=== PATIENT | female | born 1975 | race Caucasian/White ===

== ENCOUNTER 2017-09-14 20:34 | Emergency (ER) | payer OTHER ==
[2017-09-14 21:02] VITALS: BP 139/81; PULSE 78; RESP 18; TEMP 98.5
--- NOTE | 2017-09-14 21:33 | ED ---
Upper Extremity HPI - General Chief Complaint: Extremity Injury, Upper Stated Complaint: left hand pain Time Seen by Provider: 09/14/17 21:11 Source: patient Mode of arrival: ambulatory Limitations: no limitations - History of Present Illness Initial Comments: 42-year-old female complains of left wrist pain for 2 days. Patient states she was playing with some kids when one of them was a little rougher due to autism and felt it extend back. Patient states she is concerned because she had a fracture, weeks ago was placed in a cast. Patient having pain across her entire wrist unable to supinate and pronate. She denies any numbness or tingling. Patient having pain with [id number] range of motion. Patient is right-hand dominant. No pain in the forearm or elbow on that side. - Related Data Previous Rx's Medication Instructions Recorded Acetaminophen with Codeine 1 each PO Q4H PRN #20 tab 09/14/17 [Tylenol w/codeine #3] Allergies Allergy/AdvReac Type Severity Reaction Status Date / Time TAPE AdvReac WRIPPED Uncoded 09/14/17 21:02 SKIN OFF Review of Systems ROS Statement: Those systems with pertinent positive or pertinent negative responses have been documented in the HPI. ROS Other: All systems not noted in ROS Statement are negative. Musculoskeletal: Reports: other (left wrist pain) Neurological: Reports: weakness, numbness Past Medical History Additional Past Medical History / Comment(s): DDD, nerve damage History of Any Multi-Drug Resistant Organisms: None Reported Past Surgical History: Section Additional Past Surgical History / Comment(s): bilateral mastectomy Past Psychological History: Anxiety, Depression Smoking Status: Current every day smoker Past Alcohol Use History: Occasional Past Drug Use History: Marijuana General Exam Limitations: no limitations General appearance: alert, in no apparent distress Left Shoulder Exam: Present: normal inspection, full ROM. Absent: tenderness, swelling Upper Arm exam: Present: normal inspection, full ROM. Absent: tenderness, swelling Elbow exam: Present: normal inspection, full ROM. Absent: tenderness, swelling Forearm Wrist exam: Present: normal inspection, tenderness (left dorsal wrist) Hand Wrist exam: Present: tenderness (Dorsal wrist). Absent: full ROM (Unable to pronate or supinate decreased lateral range of motion.), swelling, ecchymosis Neuro motor exam: Present: wrist extension intact, thumb opposition intact Neurosensory exam: Present: 2-point discrimination Vascular: Present: normal capillary refill Course Vital Signs 09/14/17 21:00 Temperature 98.5 F Pulse Rate 78 Respiratory 18 Rate Blood Pressure 139/81 O2 Sat by Pulse 98 Oximetry Medical Decision Making - Medical Decision Making Reviewed x-ray positive fracture , ulnar fracture radial aspect intra- articular. Patient aware OCL applied by and clyde RN. Good neurovascular intact patient closely follow up with orthopedic in 2 days. Disposition Clinical Impression: Fracture of wrist Disposition: HOME SELF-CARE Condition: Good Instructions: Wrist Injury (ED), Wrist Fracture in Adults (ED) Prescriptions: Acetaminophen with Codeine [Tylenol w/codeine #3] 1 each PO Q4H PRN #20 tab PRN Reason: Pain Referrals: None,Stated [Primary Care Provider] - 1-2 days Renata Roland, PAC [PHYSICIAN LOADING UNIT TOOL SETTER] - 1-2 days Time of Disposition: 22:02
--- NOTE | 2017-09-14 21:51 | XR ---
EXAMINATION TYPE: XR wrist complete LT DATE OF EXAM: 09/14/2017 COMPARISON: NONE available at this location HISTORY: Pain, history of fracture TECHNIQUE: 4 view left wrist FINDINGS: Appears to be nonunion of a radial fracture with intra-articular extension. Cortical margin s are somewhat smooth. Additional fractures are not identified. IMPRESSION: 1. Delayed union of a ulnar aspect radial fracture with intra-articular extension.
[2017-09-14] MEDS ORDERED: KETOROLAC 60 MG/2 ML VIAL IM STA (21:58)
== END 2017-09-14 22:36 | disposition home or self-care (01) ==
LOC: EC 20:34
DX: S52.92XA Unspecified fracture of left forearm, initial encounter for closed fracture (principal); F17.200 Nicotine dependence, unspecified, uncomplicated; Z91.048 Other nonmedicinal substance allergy status; Y93.89 Activity, other specified
CPT/HCPCS: 99283 ×2; 29125 ×2; 96372 ×2; 73110; J1885

== ENCOUNTER 2018-12-12 15:29 | Emergency (ER) | payer OTHER ==
[2018-12-12 15:42] VITALS: RESP 18
[2018-12-12] MEDS ORDERED: SODIUM CHLORIDE 0.9% 1,000 ML IV ONE (16:54)
--- NOTE | 2018-12-12 17:12 | ED ---
General Adult HPI <Kevon Diaz - Last Filed: 12/12/18 19:57> - General Source: patient, RN notes reviewed, old records reviewed Mode of arrival: ambulatory Limitations: no limitations <Tim Monk - Last Filed: 12/13/18 02:12> - General Chief complaint: Vaginal Bleeding Stated complaint: Abn labs Time Seen by Provider: 12/12/18 16:12 - History of Present Illness Initial comments: 43-year-old female patient with no pertinent past medical history presents to ED with approximately 12 days of vaginal bleeding. Patient states that her typical menstrual cycle lasts from approximately the 6th to the 10th. Patient reports that she has been having consistent vaginal bleeding after the end of her normal menstrual cycle. Patient states that she is wearing thick pads and kidney 9 approximately once every 4 hours. Patient states that she is having some pain in her left adnexal region, states that she does have a history of tubal ligation which she has "titaniam clamps" on her ovarian tubes. Pt was seen by PCP today and had a CBC drawn which according to patient displayed a significant drop of CBC from approximately 1 month ago. Pt was reccomended by PCP to present to ED. Denies any urinary complaints. Patient denies any abdominal pain, nausea vomiting or diarrhea. Patient denies any chest pain or shortness of breath. Patient does report that she has been feeling somewhat more fatigued in recent days. Systemic: Pt denies myalgia, fever/chills, rash. Pt denies weakness, night sweats, weight loss. Neuro: Pt denies headache, visual disturbances, syncope or pre-syncope. HEENT: Pt denies ocular discharge or irritation, otalgia, rhinorrhea, pharyngitis or notable lymphadenopathy. Cardiopulmonary: Pt denies chest pain, SOB, heart palpitations, dyspnea on exertion. Abdominal/GI: Pt denies abdominal pain, n/v/d. : Pt denies dysuria, burning w/ urination, frequency/urgency. Denies new onset urinary or bowel incontinence. MSK: Pt denies myalgia, loss of strength or function in extremities. Neuro: Pt denies new onset weakness, paresthesias. (Tim Monk) - Related Data Home Medications Medication Instructions Recorded Confirmed Ergocalciferol (Vitamin D2) 50,000 unit PO Q7D 12/12/18 12/12/18 [Vitamin D2] Pregabalin [Lyrica] 75 mg PO BID 12/12/18 12/12/18 rOPINIRole HCL [Requip] 1 mg PO HS 12/12/18 12/12/18 Previous Rx's Medication Instructions Recorded Ibuprofen [Motrin] 600 mg PO Q6HR PRN #40 day 12/12/18 Allergies Allergy/AdvReac Type Severity Reaction Status Date / Time acetaminophen Allergy Rash/Hives Verified 12/12/18 16:43 [From Tylenol-Codeine #3] codeine Allergy Rash/Hives Verified 12/12/18 16:43 [From Tylenol-Codeine #3] Iodine and Iodide Containing Allergy Rapid Verified 12/12/18 16:43 Produc Heart Rate TAPE AdvReac WRIPPED Uncoded 12/12/18 15:42 SKIN OFF Review of Systems ROS Other: All systems not noted in ROS Statement are negative. <Kevon Diaz - Last Filed: 12/12/18 19:57> ROS Other: All systems not noted in ROS Statement are negative. <Tim Monk - Last Filed: 12/13/18 02:12> ROS Statement: Those systems with pertinent positive or pertinent negative responses have been documented in the HPI. Past Medical History Additional Past Medical History / Comment(s): DDD, nerve damage History of Any Multi-Drug Resistant Organisms: None Reported Past Surgical History: Section Additional Past Surgical History / Comment(s): bilateral mastectomy Past Psychological History: Anxiety, Depression Smoking Status: Current every day smoker Past Alcohol Use History: Occasional Past Drug Use History: Marijuana <Tim Monk - Last Filed: 12/13/18 02:12> General Exam <Kevon Diaz - Last Filed: 12/12/18 19:57> Limitations: no limitations <Tim Monk - Last Filed: 12/13/18 02:12> - General Exam Comments Initial Comments: Constitutional: NAD, AOX3, Pt has pleasant affect. HEENT: NC/AT, trachea midline, neck supple, no lymphadenopathy. Posterior pharynx non erythematous, without exudates. External ears appear normal, without discharge. Mucous membranes moist. Eyes PERRLA, EOM intact. There is no scleral icterus. No pallor noted. Cardiopulmonary: RRR, no murmurs, rubs or gallops, no JVD noted. Lungs CTAB in anterior and posterior hubbard. No peripheral edema. Abdominal exam: Abdomen soft and non-distended. Abdomen non-tender to palpation in all 4 quadrants. Bowel sounds active in LLQ. No hepatosplenomegaly. No ecchymosis. L adenxal region mildly tender to palpation, R adenexal region non tender to palpation. Neuro: CN II-XII grossly intact. No nuchal rigidity. MSK: No posterior calf tenderness bilaterally, homans sign negative bilaterally. Posterior tibialis and radial pulse +2 bilaterally. Sensation intact in upper and lower extremities. Full active ROM in upper and lower extremities, 5/5 stregnth. Senior Category Manager: pelvic exam revealed blood in the posterior vaginal vault, cervix pink without ulceration or lesion, blood noted coming out of cervix, no cervical motion tenderness. Chaperogned by TANESHA cantrell. (Tim Monk) Vital Signs 12/12/18 12/12/18 15:39 18:43 Temperature 97.9 F 97.8 F Pulse Rate 88 65 Respiratory 18 18 Rate Blood Pressure 157/108 123/88 O2 Sat by Pulse 99 98 Oximetry Medical Decision Making - Lab Data Result diagrams: 12/12/18 17:16 12/12/18 17:16 <Kevon Diaz - Last Filed: 12/12/18 19:57> - Lab Data Result diagrams: 12/12/18 17:16 12/12/18 17:16 <Tim Monk - Last Filed: 12/13/18 02:12> - Medical Decision Making Discussed patient case with physician assistant maintenance manager. Patient was discharged prior to the CT report. Transvenous ultrasound was obtained showing fibroid uterus. Patient's bleeding likely secondary to this. Patient doesn't have established OPERATIONS DISPATCHER. Discussed patient case with Dr. Saeed. Patient was supposed to be given outpatient referral to Dr. Saeed's OPERATIONS DISPATCHER group however patient eloped prior to referral paperwork. (Kevon Diaz) 43-year-old female patient with no pertinent past medical history presents to ED with approximately 12 days of vaginal bleeding. Patient states that her typical menstrual cycle lasts from approximately the 6th to the 10th. Patient reports that she has been having consistent vaginal bleeding after the end of her normal menstrual cycle. Pt was seen by PCP today and had a CBC drawn which according to patient displayed a significant drop of CBC from approximately 1 month ago. Pt was reccomended by PCP to present to ED. Pt VSS, afebrile. Physical exam displayed: pelvic exam revealed blood in the posterior vaginal vault, cervix pink without ulceration or lesion, blood noted coming out of cervix, no cervical motion tenderness. Chaperogned by TANESHA cantrell. Abdomen soft and non-distended. Abdomen non-tender to palpation in all 4 quadrants. Bowel sounds active in LLQ. No hepatosplenomegaly. No ecchymosis. L adenxal region mildly tender to palpation, R adenexal region non tender to palpation. Laboratory investigations revealed hemoglobin stable at 10.5. Coagulation studies within normal limits. CMP non-impressive. UA displayed greater than 170 red cells, 17 white cells, small leukocyte esterase. Urine contaminated by menses, will culture. Pt not having any urinary symptoms. HCG was negative. Transvaginal ultrasound displayed simple left ovarian cyst, fibroid uterus. No evidence of ovarian torsion. Findings with patient length. Patient was to be referred to [facility] OPERATIONS DISPATCHER grou but Patient eloped prior to discharge paperwork. Case discussed at length with Dr. Diaz. Prior to elopement pt was instructed to f/u with PCP in 1-2 days and return to ED if condition worsens in anyway or if new s/sx develop. (Tim Monk) - Lab Data Lab Results 12/12/18 12/12/18 12/12/18 Range/Units 17:16 17:16 17:16 WBC 9.6 (3.8-10.6) k/uL RBC 3.79 L (3.80-5.40) m/uL Hgb 10.5 L (11.4-16.0) gm/dL Hct 32.7 L (34.0-46.0) % MCV 86.3 (80.0-100.0) fL MCH 27.7 (25.0-35.0) pg MCHC 32.2 (31.0-37.0) g/dL RDW 15.5 (11.5-15.5) % Plt Count 303 (150-450) k/uL Neutrophils % 65 % Lymphocytes % 28 % Monocytes % 4 % Eosinophils % 2 % Basophils % 0 % Neutrophils # 6.2 (1.3-7.7) k/uL Lymphocytes # 2.6 (1.0-4.8) k/uL Monocytes # 0.4 (0-1.0) k/uL Eosinophils # 0.2 (0-0.7) k/uL Basophils # 0.0 (0-0.2) k/uL PT 9.7 (9.0-12.0) sec INR 0.9 (<1.2) APTT 22.8 (22.0-30.0) sec Sodium 141 (137-145) mmol/L Potassium 4.5 (3.5-5.1) mmol/L Chloride 110 H (98-107) mmol/L Carbon Dioxide 26 (22-30) mmol/L Anion Gap 5 mmol/L BUN 9 (7-17) mg/dL Creatinine 0.67 (0.52-1.04) mg/dL Est GFR (CKD-EPI)AfAm >90 (>60 ml/min/1.73 sqM) Est GFR (CKD-EPI)NonAf >90 (>60 ml/min/1.73 sqM) Glucose 79 (74-99) mg/dL Calcium 9.4 (8.4-10.2) mg/dL Total Bilirubin 0.4 (0.2-1.3) mg/dL AST 20 (14-36) U/L ALT 19 (9-52) U/L Alkaline Phosphatase 70 (38-126) U/L Total Protein 6.8 (6.3-8.2) g/dL Albumin 4.0 (3.5-5.0) g/dL Urine Color Urine Appearance (Clear) Urine pH (5.0-8.0) Ur Specific [place] (1.001-1.035) Urine Protein (Negative) Urine Glucose (UA) (Negative) Urine Ketones (Negative) Urine Blood (Negative) Urine Nitrite (Negative) Urine Bilirubin (Negative) Urine Urobilinogen (<2.0) mg/dL Ur Leukocyte Esterase (Negative) Urine RBC (0-5) /hpf Urine WBC (0-5) /hpf Ur Squamous Epith Cells (0-4) /hpf Urine Mucus (None) /hpf Urine HCG, Qual (Not Detectd) Trichomonas Ag (Rapid) (Negative) Blood Type Blood Type Recheck Antibody Screen Spec Expiration Date 12/12/18 12/12/18 12/12/18 Range/Units 17:16 17:29 17:29 WBC (3.8-10.6) k/uL RBC (3.80-5.40) m/uL Hgb (11.4-16.0) gm/dL Hct (34.0-46.0) % MCV (80.0-100.0) fL MCH (25.0-35.0) pg MCHC (31.0-37.0) g/dL RDW (11.5-15.5) % Plt Count (150-450) k/uL Neutrophils % % Lymphocytes % % Monocytes % % Eosinophils % % Basophils % % Neutrophils # (1.3-7.7) k/uL Lymphocytes # (1.0-4.8) k/uL Monocytes # (0-1.0) k/uL Eosinophils # (0-0.7) k/uL Basophils # (0-0.2) k/uL PT (9.0-12.0) sec INR (<1.2) APTT (22.0-30.0) sec Sodium (137-145) mmol/L Potassium (3.5-5.1) mmol/L Chloride (98-107) mmol/L Carbon Dioxide (22-30) mmol/L Anion Gap mmol/L BUN (7-17) mg/dL Creatinine (0.52-1.04) mg/dL Est GFR (CKD-EPI)AfAm (>60 ml/min/1.73 sqM) Est GFR (CKD-EPI)NonAf (>60 ml/min/1.73 sqM) Glucose (74-99) mg/dL Calcium (8.4-10.2) mg/dL Total Bilirubin (0.2-1.3) mg/dL AST (14-36) U/L ALT (9-52) U/L Alkaline Phosphatase (38-126) U/L Total Protein (6.3-8.2) g/dL Albumin (3.5-5.0) g/dL Urine Color Yellow Urine Appearance Clear (Clear) Urine pH 8.5 H (5.0-8.0) Ur Specific [place] 1.018 (1.001-1.035) Urine Protein 1+ H (Negative) Urine Glucose (UA) Negative (Negative) Urine Ketones Negative (Negative) Urine Blood Large H (Negative) Urine Nitrite Negative (Negative) Urine Bilirubin Negative (Negative) Urine Urobilinogen <2.0 (<2.0) mg/dL Ur Leukocyte Esterase Small H (Negative) Urine RBC >182 H (0-5) /hpf Urine WBC 17 H (0-5) /hpf Ur Squamous Epith Cells 1 (0-4) /hpf Urine Mucus Rare H (None) /hpf Urine HCG, Qual Not Detected (Not Detectd) Trichomonas Ag (Rapid) (Negative) Blood Type O Positive Blood Type Recheck No Antibody Screen NEGATIVE Spec Expiration Date 12/15/2018 - 231512/12/18 Range/Units 17:35 WBC (3.8-10.6) k/uL RBC (3.80-5.40) m/uL Hgb (11.4-16.0) gm/dL Hct (34.0-46.0) % MCV (80.0-100.0) fL MCH (25.0-35.0) pg MCHC (31.0-37.0) g/dL RDW (11.5-15.5) % Plt Count (150-450) k/uL Neutrophils % % Lymphocytes % % Monocytes % % Eosinophils % % Basophils % % Neutrophils # (1.3-7.7) k/uL Lymphocytes # (1.0-4.8) k/uL Monocytes # (0-1.0) k/uL Eosinophils # (0-0.7) k/uL Basophils # (0-0.2) k/uL PT (9.0-12.0) sec INR (<1.2) APTT (22.0-30.0) sec Sodium (137-145) mmol/L Potassium (3.5-5.1) mmol/L Chloride (98-107) mmol/L Carbon Dioxide (22-30) mmol/L Anion Gap mmol/L BUN (7-17) mg/dL Creatinine (0.52-1.04) mg/dL Est GFR (CKD-EPI)AfAm (>60 ml/min/1.73 sqM) Est GFR (CKD-EPI)NonAf (>60 ml/min/1.73 sqM) Glucose (74-99) mg/dL Calcium (8.4-10.2) mg/dL Total Bilirubin (0.2-1.3) mg/dL AST (14-36) U/L ALT (9-52) U/L Alkaline Phosphatase (38-126) U/L Total Protein (6.3-8.2) g/dL Albumin (3.5-5.0) g/dL Urine Color Urine Appearance (Clear) Urine pH (5.0-8.0) Ur Specific [place] (1.001-1.035) Urine Protein (Negative) Urine Glucose (UA) (Negative) Urine Ketones (Negative) Urine Blood (Negative) Urine Nitrite (Negative) Urine Bilirubin (Negative) Urine Urobilinogen (<2.0) mg/dL Ur Leukocyte Esterase (Negative) Urine RBC (0-5) /hpf Urine WBC (0-5) /hpf Ur Squamous Epith Cells (0-4) /hpf Urine Mucus (None) /hpf Urine HCG, Qual (Not Detectd) Trichomonas Ag (Rapid) Negative (Negative) Blood Type Blood Type Recheck Antibody Screen Spec Expiration Date Disposition <Kevon Diaz - Last Filed: 12/12/18 19:57> Is patient prescribed a controlled substance at d/c from ED?: No Time of Disposition: 19:37 <Tim Monk - Last Filed: 12/13/18 02:12> Clinical Impression: Vaginal bleeding, Fibroid uterus Disposition: HOME SELF-CARE Condition: Stable Additional Instructions: Patient to adhere to previously discussed treatment plan and will take medication(s) as directed. Patient to follow up with PCP in 1-2 days. Patient to return to ED if symptoms do not improve. Prescriptions: Ibuprofen [Motrin] 600 mg PO Q6HR PRN #40 day PRN Reason: Pain Referrals: Sujatha Dickinson MD [Primary Care Provider] - 1-2 days Chelsea Saeed DO [Doctor of Osteopathic Medicine] - 1-2 days
[2018-12-12 17:38] LABS: Basophils % (A) 0 %; Eosinophils # (A) 0.2 k/uL (0-0.7); Eosinophils % (A) 2 %; HCT 32.7 % (34.0-46.0); HGB 10.5 gm/dL (11.4-16.0); Lymphocytes # (A) 2.6 k/uL (1.0-4.8); Lymphocytes % (A) 28 %; MCH 27.7 pg (25.0-35.0); MCHC 32.2 g/dL (31.0-37.0); MCV 86.3 fL (80.0-100.0); Mean Platelet Volume 7.9; Monocytes # (A) 0.4 k/uL (0-1.0); Monocytes % (A) 4 %; Neutrophils # (A) 6.2 k/uL (1.3-7.7); Neutrophils % (A) 65 %; Platelet Count 303 k/uL (150-450); RBC 3.79 m/uL (3.80-5.40); RDW 15.5 % (11.5-15.5); WBC 9.6 k/uL (3.8-10.6)
[2018-12-12 17:47] LABS: INR 0.9 (<1.2); Partial Thromboplastin Time 22.8 sec (22.0-30.0); Prothrombin Time 9.7 sec (9.0-12.0)
[2018-12-12 17:50] LABS: ALT 19 U/L (9-52); AST 20 U/L (14-36); Alkaline Phosphatase 70 U/L (38-126); Anion Gap 5 mmol/L; Blood Urea Nitrogen 9 mg/dL (7-17); Calcium 9.4 mg/dL (8.4-10.2); Carbon Dioxide 26 mmol/L (22-30); Chloride 110 mmol/L (98-107); Glucose 79 mg/dL (74-99); Potassium 4.5 mmol/L (3.5-5.1); Sodium 141 mmol/L (137-145); Total Bilirubin 0.4 mg/dL (0.2-1.3); Total Protein 6.8 g/dL (6.3-8.2)
[2018-12-12 17:54] LABS: Appearance,Urine Clear (Clear); Bilirubin,Urine Negative (Negative); Blood,Urine Large (Negative); Color,Urine Yellow; Glucose,Urine (UA) Negative (Negative); Ketones,Urine Negative (Negative); Leukocyte Esterase,Urine Small (Negative); Mucus,Urine Rare /hpf; Nitrite,Urine Negative (Negative); PH, Urine 8.5 (5.0-8.0); Protein,Urine 1+ (Negative); RBC,Urine >182 /hpf (0-5); Specific Gravity,Urine 1.018 (1.001-1.035); Squamous Epithelial Cell,Urine 1 /hpf (0-4); Urobilinogen,Urine <2.0 mg/dL (<2.0)
[2018-12-12] MEDS ORDERED: KETOROLAC 60 MG/2 ML VIAL IM STA (17:57)
[2018-12-12] MEDS ORDERED: KETOROLAC 30 MG/ML 1 ML VIAL IVP STA (18:17)
--- NOTE | 2018-12-12 18:21 | US ---
EXAMINATION TYPE: US transvaginal DATE OF EXAM: 12/12/2018 COMPARISON: NONE CLINICAL HISTORY: bleeding x12 days. Pain. Difficult exam due to patient crying and moving during exa m TECHNIQUE: . Transvaginal sonographic images of the pelvis were acquired. Date of LMP: 12 days ago EXAM MEASUREMENTS: Uterus: 9.7 x 6.1 x 5.7 cm cm Endometrial Stripe: Unable to visualize with certainty Right Ovary: 2.2 x 1.6 x 1.8 Left Ovary: 3.1 x 1.7 x 3.1 cm 1. Uterus: Anteverted Bulky and heterogeneous. Nabothian cysts visualized within cervix. Multiple probable fibroids visualized, largest measuring 4.9 x 4.2 x 5.8 cm 2. Endometrium: Unable to visualize with certainty due to heterogeneous myometrium and probable fibr oid changes 3. Right Ovary: wnl 4. Left Ovary: Cystic area visualized measuring 1.7 x 1.4 x 1.4 cm Spectral, color and waveform doppler imaging shows good arterial and venous flow within the ovaries ; there is no evidence for ovarian torsion. 5. Bilateral Adnexa: wnl 6. Posterior cul-de-sac: wnl IMPRESSION: Simple left ovarian cyst. No solid adnexal mass. Enlarged fibroid uterus. No evidence of ovarian torsion.
[2018-12-12 18:44] VITALS: BP 123/88; PULSE 65; TEMP 97.8
[2018-12-14 13:33] LABS: C. trachomatis,PCR Negative (Neg,Equiv); Chlamydia trachomatis Source Cervix; N. gonorrhoeae,PCR Positive (Neg,Equiv); Neisseria Source Cervix
== END 2018-12-12 20:10 | disposition home or self-care (01) ==
LOC: EC 15:29
DX: D25.9 Leiomyoma of uterus, unspecified (principal); N83.202 Unspecified ovarian cyst, left side; R53.83 Other fatigue; F32.9 Major depressive disorder, single episode, unspecified; F41.9 Anxiety disorder, unspecified; F17.200 Nicotine dependence, unspecified, uncomplicated; Z79.899 Other long term (current) drug therapy; Z88.8 Allergy status to other drugs, medicaments and biological substances; Z88.5 Allergy status to narcotic agent; Z88.6 Allergy status to analgesic agent; Z91.09 Other allergy status, other than to drugs and biological substances; Z90.13 Acquired absence of bilateral breasts and nipples; Z98.51 Tubal ligation status; Z53.29 Procedure and treatment not carried out because of patient's decision for other reasons; Z53.8 Procedure and treatment not carried out for other reasons
CPT/HCPCS: 36415; 86900; 86901; 80053; 85025; 85610; 85730; 86850; 81001; 81025; 87808; 87491; 87591; 87070; 87086; 93975; 76830; 99284; 96374; 96361; J1885; 87205

== ENCOUNTER 2018-12-15 16:23 | Emergency (ER) | payer OTHER ==
[2018-12-15] MEDS ORDERED: cefTRIAXone 250 MG VIAL IM STA (16:29)
[2018-12-15] MEDS ORDERED: AZITHROMYCIN 500 MG TAB PO STA (16:30)
--- NOTE | 2018-12-15 16:30 | ED ---
Recheck HPI - General Stated Complaint: Recheck - Related Data Home Medications Medication Instructions Recorded Confirmed Ergocalciferol (Vitamin D2) 50,000 unit PO Q7D 12/12/18 12/12/18 [Vitamin D2] Pregabalin [Lyrica] 75 mg PO BID 12/12/18 12/12/18 rOPINIRole HCL [Requip] 1 mg PO HS 12/12/18 12/12/18 Previous Rx's Medication Instructions Recorded Ibuprofen [Motrin] 600 mg PO Q6HR PRN #40 day 12/12/18 Allergies Allergy/AdvReac Type Severity Reaction Status Date / Time acetaminophen Allergy Rash/Hives Verified 12/12/18 16:43 [From Tylenol-Codeine #3] codeine Allergy Rash/Hives Verified 12/12/18 16:43 [From Tylenol-Codeine #3] Iodine and Iodide Containing Allergy Rapid Verified 12/12/18 16:43 Produc Heart Rate TAPE AdvReac WRIPPED Uncoded 12/12/18 15:42 SKIN OFF Review of Systems ROS Statement: Those systems with pertinent positive or pertinent negative responses have been documented in the HPI. ROS Other: All systems not noted in ROS Statement are negative. Past Medical History Additional Past Medical History / Comment(s): DDD, nerve damage History of Any Multi-Drug Resistant Organisms: None Reported Past Surgical History: Section Additional Past Surgical History / Comment(s): bilateral mastectomy Past Psychological History: Anxiety, Depression Smoking Status: Current every day smoker Past Alcohol Use History: Occasional Past Drug Use History: Marijuana Disposition Referrals: Sujatha Dickinson MD [Primary Care Provider] - 1-2 days
== END 2018-12-15 16:39 | disposition home or self-care (01) ==
LOC: EC 16:23
DX: Z51.89 Encounter for other specified aftercare (principal)
CPT/HCPCS: 99499

== ENCOUNTER → 2023-10-09 | Outpatient (CLI) | payer OTHER ==
[2023-10-09 13:21] VITALS: BP 116/81; PULSE 74; RESP 15; TEMP 98.4
--- NOTE | 2023-10-09 14:46 | P.PAINPG ---
PQRS Measure Charge Sheet Comment: HISTORY OF PRESENT ILLNESS: A 48 yr old female as a referral from Dr Vega presents today w severe and chronic LBP since 2009 secondary to DDD, spondylosis and facet arthropathy without myelopathy for evaluation. Pt states pain level is provoked at 6/10 in intensity, constant, localized in the L lumbar spine, predominantly axial, stabbing in character w shooting pain occasionally towards the LLE. Pain is provoked by cold weather. Pain is alleviated by medications (Percocet, Lyrica), PT in 2022, repositioning and rest. Oswestry axial pain score at 41. Pt stated she's had 3 lumbar fusions w a 5 inch trista placed, but lumbar incisional scar is <2 inches. I discussed interventional procedures and the need to have PT and recent imaging, but then pt stated she was not referred by Dr Vega for her back, but by Dr Josette Hernandez for her wrist. I discussed the aforementioned treatment plan again but time for her wrist, but pt started picking up her belongings to leave. She stated that Dr Vega discharged pt from his practice because her insurance wasn't paying the provider for his services. Pt only wanted narcotics to treat pain. PMH: OA, DDD, Peripheral Neuropathy, MDD/ Anxiety PSH: Lumbar Fusion x3, Section, BL Masectomy SH: 40 pack/ yr daily tobacco use, Occasional ETOH use, Cannabis use FH: Non contributory All: See list Meds: See list REVIEW OF ORGAN SYSTEMS: CONSTITUTIONAL: No fevers or chills. No recent weight loss. NEUROLOGICAL: + numbness and tingling along the distal extremities. No seizure disorders or headaches. MUSCULOSKELETAL: + pain PSYCHIATRIC: Denies current depression or suicidal thoughts. Physical Examinations : Constitutional : Cooperative , not in acute distress . Neurologic : Cranial nerve II to XII intact. No focal neurological deficits. Psychiatric : alert & oriented x 3. Matching mood & appropriate affect. Judgment & insight intact. Musculoskeletal : Cervical Spine Motor strength in the deltoid and biceps: Normal right side. Normal Left side Motor strength biceps and the wrist extensors: Normal right side . Normal left side Motor strength in the triceps muscle: Normal right side. Normal left side Deep tendon reflexes: Normal at the biceps. Normal at Brachioradialis. Normal at triceps Vertebral body tenderness to deep palpation over Cervical facet loading test: positive bilaterally Spurling test: positive bilaterally Neck distraction test: positive bilaterally Vasquez sign: positive bilaterally Lumbar spine + 2-3 inch well-healed incisional scar Motor strength lower extremities ,thigh and legs 5/5 Right side , 5/5 Left side Deep tendon reflexes : Normal Knee Jerk. Normal Ankle Jerk Vertebral body tenderness over Herndon Test positive Lumbar facet Loading Test: positive Right / positive Left Range of motion of the lumbar spine Flexion 30 degrees, extension 10 degrees Straight Leg Raise test: Left/ Right positive at degree Barbara test: positive right / positive left. Severe tenderness over the Sacroiliac joint on the Right / Left sides Gaenslen test: positive bilaterally Seated flexion test: positive bilaterally. Sacral spine : Severe tenderness over the Sacroiliac joint: right side / left side Range of motion: Flexion of the lumbar spine <60 degrees Range of motion: Extension of the lumbar spine <20 degrees Gaenslen's Test positive Barbara test: positive right side / left side Thigh Thrust Test Sacral Thrust Test Imaging: None on file Assessment/ Plan : Lumbar DDD No records of lumbar surgeries at this facility and pt is disinterested in non - narcotic treatment or imaging. Urged compliance w PT script for LUE arthropathy. All questions answered. I have spent greater than 30 minutes on patient care today. Dr Canales was available by phone for the evaluation of this patient. The time was used to review the medical records including relevant urine studies and Prescription history (MAPs), review of the available imaging, evaluation and examination of the patient, coordination of care with the medical staff and if applicable referring physicians, as well as creation of the medical record PQRS Narrative: Smoking Status Current every day smoker Home Medications: Ambulatory Orders Ergocalciferol (Vitamin D2) [Vitamin D2] 50,000 unit PO Q7D 12/12/18 Ibuprofen [Motrin] 600 mg PO Q6HR PRN #40 day 12/12/18 Pregabalin [Lyrica] 75 mg PO BID 12/12/18 rOPINIRole HCL [Requip] 1 mg PO HS 12/12/18 Controlled Substance Measures - Controlled Substance Measures Is patient prescribed a controlled substance at discharge?: No
== END ==
LOC: PNWHC3 12:11
PROVIDERS: ATTEND Specialist
DX: M51.36 Other intervertebral disc degeneration, lumbar region (principal); G62.9 Polyneuropathy, unspecified; M19.90 Unspecified osteoarthritis, unspecified site; F32.9 Major depressive disorder, single episode, unspecified; F41.9 Anxiety disorder, unspecified; Z72.0 Tobacco use; Z88.5 Allergy status to narcotic agent; Z88.1 Allergy status to other antibiotic agents; Z88.8 Allergy status to other drugs, medicaments and biological substances; Z91.041 Radiographic dye allergy status; Z91.048 Other nonmedicinal substance allergy status
CPT/HCPCS: 99211

== ENCOUNTER 2024-06-18 09:19 | Day surgery (SDC) | payer OTHER ==
[2024-06-17 14:54] VITALS: BMI 37.1
[2024-06-18] MEDS: IV FLUID CONTINUATION 1,000 ML IV ONE (09:49)
[2024-06-18 09:57] VITALS: RESP 16; TEMP 97.1
[2024-06-18] MEDS: LACTATED RINGERS 1,000 ML IV SCH (09:57)
[2024-06-18 09:58] LABS: Glucose,Whole Blood 114 mg/dL (70-110)
[2024-06-18] MEDS ORDERED: PROPOFOL 10 MG/ML 20 ML VIAL IV ONE (10:09)
[2024-06-18] MEDS ORDERED: LIDOCAINE 1% INJ 10MG/ML (20 ML MDV) ONE (10:09)
--- NOTE | 2024-06-18 10:13 | P.GSHP ---
History of Present Illness H&P Date: 06/18/24 Chief Complaint: Screening colonoscopy, hemorrhoids Is a 49-year-old female who presents today for screening colonoscopy. Patient has had complaints of hemorrhoids. Past Medical History Past Medical History: COPD, Hypertension Additional Past Medical History / Comment(s): possible blockage in colon shown xray, distended abdomen,possible left fx r/t fall over 6 months ago,hx DDD, nerve damage,runs low blood sugars, multiple masses raul breasts, colon polyps History of Any Multi-Drug Resistant Organisms: None Reported Past Surgical History: Back Surgery, Section, Hysterectomy Additional Past Surgical History / Comment(s): bilateral mastectomy,hysterectomy March 2024, trista placed to lower spine Past Anesthesia/Blood Transfusion Reactions: No Reported Reaction Additional Past Anesthesia/Blood Transfusion Reaction / Comment(s): no hx blood transfusion Smoking Status: Current every day smoker - Past Family History Mother Family Medical History: No Reported History Medications and Allergies Home Medications Medication Instructions Recorded Confirmed Type Pregabalin [Lyrica] 150 mg PO BID 12/12/18 06/18/24 History rOPINIRole HCL [Requip] 3 mg PO HS 12/12/18 06/18/24 History Albuterol Inhaler [Ventolin Hfa 1 - 2 puff INHALATION Q6H PRN 06/17/24 06/18/24 History Inhaler] Cymbalta Unk Dose 1 dose PO HS 06/17/24 06/18/24 History Hydroxyzine Unk Dose 1 dose PO BID 06/17/24 06/18/24 History Symbicort Inh Unk Dose 1 dose INHALATION BID 06/17/24 06/18/24 History Water Pill Unk Dose 1 dose PO DAILY 06/17/24 06/18/24 History Z Quil 1 dose PO HS PRN 06/17/24 06/18/24 History amLODIPine 10 mg PO QAM 06/17/24 06/18/24 History carisoprodoL [Soma] 350 mg PO TID PRN 06/17/24 06/18/24 History oxyCODONE HCL/ACETAMINOPHEN 1 tab PO TID PRN 06/17/24 06/18/24 History [Percocet 10-325 mg] traZODone HCL [Trazodone HCl] 150 mg PO HS 06/17/24 06/18/24 History Allergies Allergy/AdvReac Type Severity Reaction Status Date / Time acetaminophen Allergy Rash/Hives Verified 06/18/24 09:43 [From Tylenol-Codeine #3] codeine Allergy Rash/Hives Verified 06/18/24 09:43 [From Tylenol-Codeine #3] Iodine and Iodide Containing Allergy Rapid Verified 06/18/24 09:43 Produc Heart Rate latex Allergy Rash/Hives Verified 06/18/24 09:43 TAPE AdvReac WRIPPED Uncoded 06/18/24 09:43 SKIN OFF-paper tape is ok Surgical - Exam Vital Signs Temp Pulse Resp BP Pulse Ox 97.1 F L 71 16 116/60 94 L 06/18/24 09:52 06/18/24 09:52 06/18/24 09:52 06/18/24 09:52 06/18/24 09:52 - General well developed, well nourished, no distress - Eyes PERRL - ENT normal pinna - Neck no masses - Respiratory normal expansion - Cardiovascular Rhythm: regular - Abdomen Abdomen: soft, non tender Results - Labs Abnormal Lab Results - Last 24 Hours (Table) 06/18/24 Range/Units 09:56 POC Glucose (mg/dL) 114 H (70-110) mg/dL Assessment and Plan Plan: Will perform screening colonoscopy
--- NOTE | 2024-06-18 10:27 | P.OP ---
Date of Procedure: 06/18/24 Preoperative Diagnosis: Screening colonoscopy Postoperative Diagnosis: Hemorrhoids Procedure(s) Performed: Colonoscopy Anesthesia: MAC Surgeon: Raul Rowe Pathology: none sent Condition: stable Disposition: PACU Description of Procedure: The patient was placed on the endoscopy table in the lateral position. She received IV sedation. The digital rectal exam was performed which revealed internal/external hemorrhoids. Flexible colonoscope was then placed patient anus passed throughout the entire colon. The ileocecal valve was visualized. The cecum, ascending and transverse colon appeared normal. The descending and sigmoid colon appeared normal. Scope was brought back to the rectum and this was normal. Scope was then withdrawn through the anus internal/external return noted. Scope was withdrawn from patient.
[2024-06-18 10:51] VITALS: BP 105/63; PULSE 66
== END 2024-06-18 11:16 | disposition home or self-care (01) ==
LOC: ORWHC2ENDO 09:19
PROVIDERS: ATTEND Surgery
DX: Z12.11 Encounter for screening for malignant neoplasm of colon (principal); K64.8 Other hemorrhoids; K64.4 Residual hemorrhoidal skin tags; Z86.010 Personal history of colon polyps; I10 Essential (primary) hypertension; J44.9 Chronic obstructive pulmonary disease, unspecified; Z88.5 Allergy status to narcotic agent; F17.290 Nicotine dependence, other tobacco product, uncomplicated; Z91.041 Radiographic dye allergy status; Z91.040 Latex allergy status; Z91.09 Other allergy status, other than to drugs and biological substances; Z88.6 Allergy status to analgesic agent; Z79.899 Other long term (current) drug therapy; Z79.51 Long term (current) use of inhaled steroids
CPT/HCPCS: 45378; J2001; J2704

== ENCOUNTER → 2025-02-18 | Outpatient (CLI) | payer OTHER ==
--- NOTE | 2025-02-18 14:38 | MR ---
EXAMINATION TYPE: MR brain wo con DATE OF EXAM: 02/18/2025 COMPARISON: NONE CLINICAL INDICATION: Female, 49 years old with history of R29.6 REPEATED FALLS R42 DIZZINESS AND GIDD INESS PHH, Memory loss, dizziness, hx of head trauma TECHNIQUE: T1-weighted sagittal, T2, FLAIR, and diffusion axial, and T2 coronal coronal views of the brain are submitted. FINDINGS: There is no evidence of acute ischemia. The ventricles, basal cisterns, and sulci overlying the conv exities are consistent with the patient's age. There is no mass effect. Craniocervical junction maintained. Sella turcica has a normal appearance. Mild chronic sinusitis. IMPRESSION: 1. No acute intracranial process. 2. Mild chronic sinusitis. [facility], , 02/18/2025 2:35 PM
== END | disposition home or self-care (01) ==
LOC: RADMRIMAIN 13:03
PROVIDERS: ATTEND Family Medicine
DX: J32.9 Chronic sinusitis, unspecified (principal); R29.6 Repeated falls; R42 Dizziness and giddiness; R55 Syncope and collapse
CPT/HCPCS: 70551